=== PATIENT | female | born 1940 | race Caucasian/White ===

== ENCOUNTER 2017-11-01 22:03 | Observation (INO) | payer OTHER ==
[~2017-11-01] VITALS: Ht 160 cm; Wt 81.4 kg
[~2017-11-01 22:03] MED LIST: COZAAR 50 MG TA50 M2 PO; DIURETIC; GLIPIZIDE 10 MG10 MG PO; GLUMETZA1000; GUAIFENESIN DM1 EACH PO; HTN MED; HYDROCHLOROTHIA25 M2 PO; LEVAQUIN 500 M500 M3 PO; LEVOXYL137 MCG PO; MECLIZINE HCL25 M1 PO; NORVASC5 MG PO; PREDNISONE 20 M20 MG PO; ZOFRAN4 MG PO
[2017-11-01 22:31] VITALS: BP 144/66
[2017-11-01] MEDS ORDERED: MAGOX 400400 MG PO (22:37)
[2017-11-01] MEDS ORDERED: SYNTHROID125 MC1 PO (22:38)
[2017-11-01 22:54] LABS: URINE BILIRUBIN NEGATIVE (Negative); URINE BLOOD 2+ (Negative); URINE CLARITY SL CLOUDY; URINE COLOR YELLOW; URINE GLUCOSE-RANDOM NEGATIVE (Negative); URINE KETONES TRACE (Negative); URINE PROTEIN NEGATIVE (Negative); URINE SPECIFIC GRAVITY 1.025 (1.005-1.030); URINE UROBILINOGEN 0.2 E.U./dl (0.2-1.0)
[2017-11-01 23:01] LABS: ABSOLUTE BASOPHILS 0.1 thou/uL (0.0-0.2); ABSOLUTE EOSINOPHILS 0.1 thou/uL (0.0-0.7); ABSOLUTE LYMPHOCYTES 2.1 thou/uL (0.8-5.3); ABSOLUTE MONOCYTES 0.9 thou/uL (0.0-1.2); ABSOLUTE NEUTROPHILS 9.2 thou/uL (1.6-8.1); BASOPHILS 0.6 %; EOSINOPHILS 0.6 %; HEMATOCRIT 42.1 % (37.0-47.0); LYMPHOCYTES 17.3 %; MCH 30.5 pg (26.0-34.0); MCHC 33.3 g/dL (28.0-37.0); MCV 91.7 fL (80.0-100.0); MPV 9.3 fl. (7.2-11.1); NUCLEATED RBCS 0 /100WBC; PLATELET COUNT* 192 thou/uL (150-400); POLYS 74.5 %; RBC 4.59 mil/uL (4.20-5.00); RDW-CV 14.2 % (10.5-14.5); WBC 12.4 thou/uL (4.0-11.0)
[2017-11-01 23:10] LABS: URINE LEUKOCYTES-REFLEX 3+ (Negative); URINE NITRITE-REFLEX POSITIVE (Negative)
[2017-11-01 23:14] LABS: CALCIUM 9.3 mg/dL (8.5-10.1); CREATININE 1.4 mg/dL (0.6-1.3); POTASSIUM 4.6 mmol/L (3.5-5.1)
[2017-11-01 23:24] LABS: ALBUMIN 3.7 g/dL (3.4-5.0); TOTAL BILIRUBIN 0.5 mg/dL (<0.1-1.0); TOTAL PROTEIN 7.1 g/dL (6.4-8.2)
[2017-11-02] VITALS (7 sets, daily range): BP systolic 123–152; BP diastolic 54–71
[2017-11-02 00:23] LABS: CASTS None Seen /LPF (None Seen); MUCUS 0-3 Light strn/LPF (None Seen); SQUAMOUS 0-3 Few /LPF (0-3); URINE WBC-REFLEX >25 Many /HPF (0-5)
[2017-11-02 00:24] LABS: BACTERIA-REFLEX >30 Many /HPF (None Seen); CRYSTALS None Seen /LPF (None Seen); URINE RBC 3-10 Few /HPF (0-2); WBC CLUMPS Few (None Seen)
--- NOTE | 2017-11-02 06:31 | NUR ---
Pt arrived from ED to room at 0215. VSS. Has bruises and abrasions to face and bilat upper extremities from fall, and reports she also lost 2 teeth as a result. States she didn't want to come to ER but family insisted. States she is hopeful of being discharged today. Voiding without difficulty, and ambulates steadily to and from BR. , who recently had eye surgery and has patch over one eye, stayed in pt's room overnight. Will continue to monitor.
--- NOTE | 2017-11-02 10:47 | NUR ---
ASSESSMENT COMPLETED REFER TO COMPUTER CHARTING. [employer] TRACKING SR. PATIENT RESTING IN BED REPORTING NO PAIN, NAUSEA OR SHORTNESS OF BREATH. BED IN LOW AND LOCKED POSITION. CALL LIGHT WTIHIN REACH. AT BEDSIDE. PATIENT REQUESTING NOT TO TAKE BLOOD PRESSURE OR HCTZ THIS AM. WILL CONTINUE TO MONITOR THIS SHIFT.
--- NOTE | 2017-11-02 12:30 | NUR ---
MET WITH PT AND FAMILY TO DISCUSS HOME SITUATION/DC PLANNING. PT LIVES WITH SPOUSE. SHE IS NORMALLY INDEPENDENT AND ACTIVE. USES NO EQUIPMENT AND HASN'T HAD HH. PT PLANS TO RETURN HOME AT DC. DENIES NEEDS
--- NOTE | 2017-11-02 16:01 | 2DMMODE ---
[place] [address] 2 D/M-MODE ECHOCARDIOGRAM Name: CARRI RODRIGUES Room: [address] IN [facility]#: [id number] Admission: 11/02/17 Attend Phys: Caio Guerra, Discharge: Date of : 42 Date of Service: 11/02/17 1601 Report #: [id number] THIS REPORT FOR: //name// APPROVED REPORT Study performed: 11/02/2017 15:26:26 EXAM: Comprehensive 2D, Doppler, and color-flow Echocardiogram Patient Location: In-Patient Room #: [facility] Status: routine BSA: 1.84 HR: 61 bpm BP: 123/54 mmHg Rhythm: NSR Other Information Study Quality: Good Indications Syncope 2D Dimensions LVEF(%): 78.04 (>50%) IVSd: 10.12 (7-11mm) LVOT Diam: 18.65 (18-24mm) LVDd: 38.76 mm PWd: 11.24 (7-11mm) Ascending Ao: 32.40 (22-36mm) LVDs: 20.92 (25-40mm) Aortic Root: 24.85 mm Lee's LVEF: 78.04 % Volumes Left Atrial Volume (Systole) LA ESV Index: 30.00 mL/m2 Aortic Valve AoV Peak Mike.: 2.33 m/s AO Peak Gr.: 21.74 mmHg LVOT Max P.08 mmHg AO Mean Gr.: 12.21 mmHg LVOT Mean P.10 mmHg LVOT Max V: 1.23 m/s AO V2 VTI: 56.68 cm LVOT Mean V: 0.81 m/s GARRETT (VTI): 1.48 cm2 LVOT V1 VTI: 30.71 cm Mitral Valve E/A Ratio: 0.97 [place] [address] 2 D/M-MODE ECHOCARDIOGRAM Name: CARRI RODRIGUES Room: [address] [place] .R.#: [id number] Admission: 11/02/17 Attend Phys: Caio Guerra, Discharge: Date of : 42 Date of Service: 11/02/17 1601 Report #: [id number] MV Decel. Time: 186.47 ms MV E Max Mike.: 1.04 m/s MV PHT: 54.08 ms MVA (PHT): 4.07 cm2 TDI E/Lateral E': 8.67 E/Medial E': 8.00 Medial E' Mike.: 0.13 m/s Lateral E' Mike.: 0.12 m/s Pulmonary Valve PV Peak Mike.: 0.77 m/s PV Peak Gr.: 2.39 mmHg Tricuspid Valve TR Peak Gr.: 18.44 mmHg RVSP: 23.00 mmHg Left Ventricle The left ventricle is normal size. There is normal LV segmental wall motion. There is normal left ventricular wall thickness. Left ventricular systolic function is normal. The left ventricular ejection fraction is within the normal range. LVEF is 60-65%. Grade I - abnormal relaxation pattern. Right Ventricle The right ventricle is normal size. The right ventricular systolic function is normal. Atria The left atrium size is normal. The right atrium size is normal. Aortic Valve Moderate aortic valve sclerosis. No aortic regurgitation is present. Mild aortic stenosis. Mitral Valve Mild mitral annular calcification. Trace mitral regurgitation. No evidence of mitral valve stenosis. Tricuspid Valve The tricuspid valve is normal in structure. Trace tricuspid regurgitation. The RVSP is ____23___ mmHg. Pulmonic Valve The pulmonary valve is normal in structure. [place] [address] 2 D/M-MODE ECHOCARDIOGRAM Name: CARRI RODRIGUES Room: [address] IN ..#: [id number] Admission: 11/02/17 Attend Phys: Caio Guerra, Discharge: Date of : 42 Date of Service: 11/02/17 1601 Report #: [id number] Great Vessels The aortic root is normal in size. IVC is normal in size and collapses with >50% inspiration Pericardium There is no pericardial effusion. <Conclusion> The left ventricle is normal size. There is normal left ventricular wall thickness. Left ventricular systolic function is normal. The left ventricular ejection fraction is within the normal range. LVEF is 60-65%. Grade I - abnormal relaxation pattern. The right ventricle is normal size. The left atrium size is normal. Moderate aortic valve sclerosis. No aortic regurgitation is present. Mild aortic stenosis. Mild mitral annular calcification. Trace mitral regurgitation. No evidence of mitral valve stenosis. The tricuspid valve is normal in structure. Trace tricuspid regurgitation. The RVSP is ____23___ mmHg. IVC is normal in size and collapses with >50% inspiration There is no pericardial effusion. There is normal LV segmental wall motion. <ELECTRONICALLY SIGNED> By: Epi Gomez MD, FACC 11/02/17 1601 1601 160 Epi Gomez MD, FACC /INF
--- NOTE | 2017-11-02 17:09 | NUR ---
WOUND CARE NOTE: CONSULT RECEIVED FORLACERATIONS/ABRASIONS AFTER FALL. PATIENT PRESENTS WITH MULTIPLE AREAS OF ECCHYMOSIS/CONTUSIONS TO BILATERAL FOREARMS AND FACE. LEFT POSTERIOR FOREARM WITH SKIN TEAR, NO SALVAGEABLE SKIN FLAP NOTED. WOUND MEASURES 2.5X3.5X0.2. LEE-WOUND IS ECCHYMOTIC. WOUND BED IS PINK, MOIST. DRAINING SMALL AMOUNTS OF SEROUS FLUID. WOUND WAS GENTLY CLEANSED WITH WOUND CLEANSER, PATTED DRY. APPLIED OPTIFOAM AG AND SECURED WITH A ROLL GAUZE. PATIENT TOLERATED DRESSING CHANGE WELL. RIGHT FOREARM: SKIN TEAR, WELL APPROXIMATED WITH STERI-STRIPS IN PLACE. DRIED SANGUINEOUS DRAINAGE NOTED, LEFT OPEN TO AIR. EDUCATED PATIENT ON DRESSING SELECTION AND NUTRITION FOR WOUND HEALING, COMMUNICATED UNDERSTANDING. PATIENT STATES SHE CANNOT EAT SOLID FOODS AT THE MOMENT DUE TO HER TEETH. EDUCATED ON NUTRITIONAL SUPPLEMENTS SUCH BOOST. PATIENT WILLING TO TRY, DESIRES TO HAVE IT FOR HER SNACK TONIGHT. PATIENT'S RN AWARE. RECOMMEND TIGHT BLOOD GLUCOSE CONTROL ENCOURAGE GOOD NUTRITION AND HYDRATION
[2017-11-03 04:00] VITALS: BP 139/70
--- NOTE | 2017-11-03 05:19 | NUR ---
Pt states she is hoping to be discharged today. VSS. Up ad vonnie. States she has some pain to chest with coughing and deep breathing but denies need for pain medicine. Will continue to monitor.
[2017-11-03 08:00] VITALS: BP 156/71
--- NOTE | 2017-11-03 08:46 | NUR ---
P.T. ORDERS RECEIVED. CHART REVIEWED. NSG NOTES INDICATE PT UP AD ADAMARIS. PT STATED SHE HAS BEEN UP TO BATHROOM INDEP AND JUST STOOD AT SINK FOR SPONGE BATH AND WASHED HER HAIR, ALL W/O ASSIST. PT HAS NO CONCERNS RE MOBILITY. ACUTE P.T. INTERVENTION NOT INDICATED AT THIS TIME.
[2017-11-03 11:01] VITALS: BP 139/70
[2017-11-03] MEDS ORDERED: LEVAQUIN 250 M250 MG PO (11:01)
--- NOTE | 2017-11-03 11:13 | NUR ---
ORDERS NOTED FOR DC, WAS ASKED TO GIVE PT INFO FOR NEW PCP. PRINTED OFF INFO FROM [employer] SITE. GIVEN TO PT WITH INFO. SHE PLANS TO CHANGE DR AND KNOWS TO CONTACT [employer] ALSO. NO OTHER NEEDS ID'D
[2017-11-03 12:00] VITALS: BP 164/61
--- NOTE | 2017-11-03 12:00 | NUR ---
ASSUMED CARE OF PT AFTER REPORT AT 0730. PT IS ALERT AND ORIENTED X4. VITAL SIGNS TAKEN AND RECORDED. PHYSICAL ASSESSMENT COMPLETED AND CHARTED. SR ON TELE. PT IS ON RA. PT UP ADLIB. DENIES ANY PAIN OR COMPLAIN AT THIS TIME. CALL LIGHT WITHIN REACH. WILL CONTINUE TO MONITOR PT.
--- NOTE | 2017-11-03 13:28 | NUR ---
ORDER RECEIVED FOR DC, IV IN R UPPER ARM DISCONTINUED ALONG WITH HER TECHNICAL CONSULTANT. DC EDUCATION AND TEACHING GIVEN.WRITTEN EDUCATION AND SCRIPTS GGIVEN. ALL QUESTIONS AND CONCERNS ADDRESSED. BELONGINGS PACKED AND ACCOUNTED FOR PT. PT ESCORTED PER TECH TO VEHICLE WITH AT 1320. NO PROBLEMS AT TIME OF DISCHARGE.
--- NOTE | 2017-11-17 06:36 | CON ---
[address] [address] CONSULTATION Name: CARRI RODRIGUES Room: [address] Eusebio Borrego#: [id number] Admission: 11/02/17 Attend Phys: Caio Guerra MD Discharge: 11/03/17 Date of : 42 Report #: [id number] THIS REPORT FOR: //name// CC: Caio MATTA Physician staff ORTHOPEDIC CONSULTATION HISTORY OF PRESENT ILLNESS: The patient is seen in the hospital. She is a very pleasant 77-year-old patient was admitted for a fall at home. She came into the hospital on 11/02/2017, was even seen by Neurology. The patient as far as Orthopedic consult goes says that she has left wrist pain. The patient was outdoor working and then had some loss of consciousness and fell with some lacerations, abrasions, admitted for further evaluation. ALLERGIES: She has no known drug allergies. Her problem list does include history of vertigo, she has had past URI, UTI, pneumonia, syncope, nausea, vomiting, cough, dizziness. MEDICATIONS: The patient does demonstrate current medications of glipizide, losartan, hydrochlorothiazide, magnesium. PAST MEDICAL HISTORY: Again hypertension, diabetes type 2. She has had osteoarthritis of the back. PAST SURGICAL HISTORY: She has had previous hysterectomy, breast surgery and left knee surgery. FAMILY HISTORY: Her father is at 92 and mother has cardiovascular disease history and has as well. SOCIAL HISTORY: She was a former smoker. Has her own business. She quit smoking about a year ago. No alcohol use. REVIEW OF SYMPTOMS: Musculoskeletal, complains of just pain across her left wrist region. Otherwise, she denies any other symptoms in all review. PHYSICAL EXAMINATION: GENERAL: She is alert and cooperative. Shows appropriate affect and judgment. HEENT: Normocephalic. Sclerae white. Mucous membranes are moist. She has multiple abrasions and contusion to the facial region. Her trachea is midline. LUNGS: She has no audible wheezes that are detected. EXTREMITIES: She has a very thin skin to both upper extremities. A small bandages noted over the dorsal region of this left arm with a skin tear. The patient's fingers move well with flexion and [place] [address] CONSULTATION Name: CARRI RODRIGUES [address] [id number] Admission: 11/02/17 Attend Phys: Caio Guerra MD Discharge: 11/03/17 Date of : 42 Report #: [id number] the dorsal wrist region on the left side, but not the right. Her motion is still full. [employer] is equal. IMAGING: X-rays taken of the right and left wrist demonstrates she does have a small trapezial injury, avulsion type fracture seen on the lateral view only. Otherwise, no gross fractures are seen. IMPRESSION: 1. Fall. 2. Left greater than right wrist pain with a left trapezial fracture, closed, minimally displaced. RECOMMENDATION: I do not want to put her in any brace secondary to having an abrasion on that arm. She is very comfortable just using it leaving it like it is. The patient definitely can see me in the office for followup within 2-4 weeks and this will definitely be sore for a good month or so. She does not want to take any medication for it otherwise. She said she will just pretty much tough it out and she is comfortable with that. The patient did not have any major concerns or questions. It is our pleasure of seeing and taking care of her today. <ELECTRONICALLY SIGNED> By: Eitan Bills DO 11/17/17 0636 [id number] [id number] Bills DO /nt
== END 2017-11-03 13:30 | disposition home or self-care (01) ==
LOC: M.ERS 22:03 → M.2W 11-02 01:17 → M.TBA-ER 11-02 01:17 → M.2W 11-02 01:17
PROVIDERS: Personal Emergency Response Attendant; ADMIT Internal Medicine
DX: S62.172A Displaced fracture of trapezium [larger multangular], left wrist, initial encounter for closed fracture (principal); S01.81XA Laceration without foreign body of other part of head, initial encounter; S00.81XA Abrasion of other part of head, initial encounter; M25.531 Pain in right wrist; R55 Syncope and collapse; N39.0 Urinary tract infection, site not specified; I10 Essential (primary) hypertension; E11.9 Type 2 diabetes mellitus without complications; G89.29 Other chronic pain; M54.9 Dorsalgia, unspecified; R11.2 Nausea with vomiting, unspecified; M19.90 Unspecified osteoarthritis, unspecified site; R31.9 Hematuria, unspecified; E03.9 Hypothyroidism, unspecified; F17.210 Nicotine dependence, cigarettes, uncomplicated; W19.XXXA Unspecified fall, initial encounter; Y93.9 Activity, unspecified; Y92.009 Unspecified place in unspecified non-institutional (private) residence as the place of occurrence of the external cause; Z90.710 Acquired absence of both cervix and uterus; Z98.890 Other specified postprocedural states

== ENCOUNTER 2021-01-19 18:37 | Emergency (ER) | payer OTHER ==
[~2021-01-19] VITALS: Ht 165.1 cm; Wt 79.4 kg
[~2021-01-19 18:37] MED LIST changes: +LEVAQUIN 250 M250 MG PO; +MAGOX 400400 MG PO; +SYNTHROID125 MC1 PO
[2021-01-19 19:02] LABS: ABSOLUTE BASOPHILS 0.1 thou/uL (0.0-0.2); ABSOLUTE EOSINOPHILS 0.3 thou/uL (0.0-0.7); ABSOLUTE LYMPHOCYTES 3.2 thou/uL (0.8-5.3); ABSOLUTE MONOCYTES 1.3 thou/uL (0.0-1.2); ABSOLUTE NEUTROPHILS 12.4 thou/uL (1.6-8.1); BASOPHILS 0.6 %; EOSINOPHILS 1.6 %; HEMATOCRIT 43.8 % (37.0-47.0); HEMOGLOBIN 14.3 gm/dL (12.0-15.0); LYMPHOCYTES 18.5 %; MCHC 32.8 g/dL (28.0-37.0); MCV 91.4 fL (80.0-100.0); MONOCYTES 7.3 %; MPV 9.5 fl. (7.2-11.1); NUCLEATED RBCS 0 /100WBC; PLATELET COUNT* 301 thou/uL (150-400); RBC 4.79 mil/uL (4.20-5.00); RDW-CV 14.9 % (10.5-14.5); WBC 17.2 thou/uL (4.0-11.0)
[2021-01-19 19:46] LABS: CREATININE 1.4 mg/dL (0.6-1.3); POTASSIUM 3.9 mmol/L (3.5-5.1)
[2021-01-19 19:47] LABS: CALCIUM 9.1 mg/dL (8.5-10.1)
[2021-01-19 19:56] LABS: ALBUMIN 3.7 g/dL (3.4-5.0); MAGNESIUM 1.8 mg/dL (1.8-2.4); TOTAL BILIRUBIN 0.5 mg/dL (<0.1-1.0); TOTAL PROTEIN 7.1 g/dL (6.4-8.2)
[2021-01-19 20:19] LABS: URINE BILIRUBIN NEGATIVE (Negative); URINE BLOOD NEGATIVE (Negative); URINE CLARITY CLEAR; URINE COLOR YELLOW; URINE GLUCOSE-RANDOM NEGATIVE (Negative); URINE KETONES NEGATIVE (Negative); URINE LEUKOCYTES-REFLEX 1+ (Negative); URINE NITRITE-REFLEX NEGATIVE (Negative); URINE PROTEIN NEGATIVE (Negative); URINE UROBILINOGEN 0.2 E.U./dl (0.2-1.0)
[2021-01-19 20:36] LABS: BACTERIA-REFLEX 1-9 Few /HPF (None Seen); CASTS None Seen /LPF (None Seen); CRYSTALS None Seen /LPF (None Seen); SQUAMOUS 0-3 Few /LPF (0-3); URINE RBC 0-2 Rare /HPF (0-2); URINE WBC-REFLEX 0-5 Rare /HPF (0-5)
[2021-01-19] MEDS ORDERED: CEPHALEXIN500 MG PO (21:22)
[2021-01-19 21:40] VITALS: BP 143/54
--- NOTE | 2021-01-20 17:03 | EKG ---
[place] [address] ELECTROCARDIOGRAM REPORT Name: CARRI RODRIGUES Room: [facility]#: [id number] Admission: 01/19/21 Attend Phys: Discharge: 01/19/21 Date of : 42 Date of Service: 01/19/211840 Report #: [id number] THIS REPORT FOR: //name// [facility] ED Test Date: 2021-01-19 Test Time: 18:41:56 Pat Name: CARRI RODRIGUES Department: Room: Gender: F Cloak Room Attendant: GARY : 1940 Requested By: Joseluis Vitale Order Number: [id number] MD: Epi Gomez Measurements Intervals [place] Rate: 107 P: 111 WA: 110 QRS: 21 QRSD: 89 T: 74 QT: 329 QTc: 439 Interpretive Statements Sinus tachycardia Inferior infarct age indeterminate possible Nonspecific inferolateral ST-T abnormality; ischemia must be considered Baseline wander in lead(s) V1,V2 Compared to ECG 02/15/2017 17:41:[address]-T abnormalities have developed Sinus rate has increased Electronically Signed On 01-20-2021 17:03:15 CDT by Epi Gomez [email or web address] <ELECTRONICALLY SIGNED> By: Epi Gomez MD, [facility] 01/20/21 1703 40 40 Epi Gomez MD, [facility] /EPI
--- NOTE | 2021-01-20 17:03 | EKG ---
[place] [address] ELECTROCARDIOGRAM REPORT Name: CARRI RODRIGUES Room: [facility]#: [id number] Admission: 01/19/21 Attend Phys: Discharge: 01/19/21 Date of : 42 Date of Service: 01/19/21 184 Report #: [id number] THIS REPORT FOR: //name// [facility] ED Test Date: 2021-01-19 Test Time: 18:49:16 Pat Name: CARRI RODRIGUES Department: Room: Gender: F Cylinder Handler: : 1940 Requested By: Deirdre Walden Order Number: [id number] MD: Epi Gomez Measurements Intervals [place] Rate: 101 P: 86 MD: 122 QRS: 26 QRSD: 106 T: 77 QT: 337 QTc: 437 Interpretive Statements Sinus tachycardia Inferior infarct, age indeterminate Compared to ECG 01/19/2021 18:41:56 No significant changes Electronically Signed On 01-20-2021 17:03:48 CDT by Epi Gomez [email or web address] <ELECTRONICALLY SIGNED> By: Epi Gomez MD, [facility] 01/20/21 1703 1849 1849 Epi Gomez MD, [facility] /EPI
== END 2021-01-19 21:41 | disposition home or self-care (01) ==
LOC: M.ERS 18:37
PROVIDERS: Emergency Medicine Emergency Medical Services; Personal Emergency Response Attendant
DX: E78.41 Elevated Lipoprotein(a) (principal); N39.0 Urinary tract infection, site not specified; R07.89 Other chest pain; I10 Essential (primary) hypertension; E11.9 Type 2 diabetes mellitus without complications; Z90.710 Acquired absence of both cervix and uterus; Z98.890 Other specified postprocedural states; Z79.899 Other long term (current) drug therapy